=== PATIENT | female | born 1985 | race Caucasian/White ===

== ENCOUNTER 2016-04-13 | Emergency (ER) | payer OTHER ==
[~2016-04-13] MED LIST: Z.0.NO CURRENT MEDS
--- NOTE | 2016-04-13 00:10 | PD ---
HPI Chief Complaint: psychiatric evaluation Time Seen by Provider: 00:10 Travel History International Travel<30 days: No Contact w/Intl Traveler<30days: No History of Present Illness HPI Patient comes in under Webb act by police for making suicidal statements. Patient denies any suicidal or homicidal ideations at this time. Patient states she is not taking her psychiatric medications and that she was drinking with her mother tomasz. Patient denies any medical complaints or concerns at this time. Denies any chest pain, shortness breath, abdominal pain, nausea, vomiting, or fevers. PFSH Past Medical History ADHD: Yes Bipolar Disorder: Yes Anxiety: Yes Depression: Yes Diminished Hearing: No Psychiatric: Yes Immunizations Current: Yes Menopausal: No : 4 Para: 4 Past Surgical History Ear Surgery: Yes (TUBES IN EARS CHILD) Social History Alcohol Use: No Tobacco Use: Yes (1PPD) Substance Use: No Allergies-Medications (Allergen,Severity, Reaction): Coded Allergies: Penicillin (Verified Allergy, Severe, RASH AND EDEMA, 04/13/16) Reported Meds & Prescriptions Reported Meds & Active Scripts Active Reported Latuda (Lurasidone) 60 Mg Tab 60 Mg PO DAILY Review of Systems Except as stated in HPI: all other systems reviewed are Neg Physical Exam Narrative GENERAL: Well-developed, overly nourished, in no acute distress, and non-ill appearing. SKIN: Warm and dry. HEAD: Atraumatic. Normocephalic. EYES: Pupils equal and round. EOMI. No scleral icterus. No injection or drainage. ENT: No nasal bleeding or discharge. Mucous membranes pink and moist. NECK: Trachea midline. Supple. No nuclear rigidity. CARDIOVASCULAR: Regular rate and rhythm. No murmur appreciated. RESPIRATORY: No accessory muscle use. No respiratory distress. Scant wheezing throughout. Breath sounds equal bilaterally. MUSCULOSKELETAL: No obvious deformities. No clubbing. No cyanosis. No edema. Full range of motion. NEUROLOGICAL: Awake and alert. No obvious cranial nerve deficits. Motor grossly within normal limits. Normal speech. PSYCHIATRIC: Appropriate mood and affect. Data Data Last Documented VS Vital Signs Date Time Temp Pulse Resp B/P Pulse Ox O2 Delivery O2 Flow Rate FiO2 04/13/16 00:12 98.7 105 16 139/75 96 Orders Complete Blood Count With Diff (04/13/16 00:08) Comprehensive Metabolic Panel (04/13/16 00:08) Ed Urine Pregnancytest Poc (04/13/16 00:08) Psych Screen (04/13/16 00:08) Drug Screen, Random Urine (04/13/16 00:08) Alcohol (Ethanol) (04/13/16 00:08) Salicylates (Aspirin) (04/13/16 00:08) Tylenol (Acetaminophen) (04/13/16 00:08) Labs Laboratory Tests Test 04/13/16 00:05 White Blood Count 10.5 TH/MM3 Red Blood Count 4.36 MIL/MM3 Hemoglobin 13.6 GM/DL Hematocrit 38.8 % Mean Corpuscular Volume 89.0 FL Mean Corpuscular Hemoglobin 31.1 PG Mean Corpuscular Hemoglobin 35.0 % Concent Red Cell Distribution Width 14.4 % Platelet Count 350 TH/MM3 Mean Platelet Volume 8.3 FL Neutrophils (%) (Auto) 58.9 % Lymphocytes (%) (Auto) 34.5 % Monocytes (%) (Auto) 3.3 % Eosinophils (%) (Auto) 2.3 % Basophils (%) (Auto) 1.0 % Neutrophils # (Auto) 6.2 TH/MM3 Lymphocytes # (Auto) 3.6 TH/MM3 Monocytes # (Auto) 0.4 TH/MM3 Eosinophils # (Auto) 0.2 TH/MM3 Basophils # (Auto) 0.1 TH/MM3 CBC Comment DIFF FINAL Differential Comment Sodium Level 144 MEQ/L Potassium Level 3.6 MEQ/L Chloride Level 111 MEQ/L Carbon Dioxide Level 21.3 MEQ/L Anion Gap 12 MEQ/L Blood Urea Nitrogen 8 MG/DL Creatinine 0.84 MG/DL Estimat Glomerular Filtration 80 ML/MIN Rate Random Glucose 97 MG/DL Calcium Level 8.8 MG/DL Total Bilirubin 0.2 MG/DL Aspartate Amino Transf 18 U/L (AST/SGOT) Alanine Aminotransferase 29 U/L (ALT/SGPT) Alkaline Phosphatase 65 U/L Total Protein 7.9 GM/DL Albumin 3.8 GM/DL Salicylates Level 4.5 MG/DL Urine Opiates Screen NEG Acetaminophen Level LESS THAN 2.0 MCG/ML Urine Barbiturates Screen NEG Urine Amphetamines Screen NEG Urine Benzodiazepines Screen NEG Urine Cocaine Screen POS Urine Cannabinoids Screen NEG Ethyl Alcohol Level 126 MG/DL MDM Medical Decision Making Medical Screen Exam Complete: Yes Emergency Medical Condition: Yes Differential Diagnosis Suicidal, homicidal, alcohol intoxication, drug induced mood disorder, bipolar, other Narrative Course Patient was seen and examined. Labs were obtained and reviewed. Patient medically cleared for further treatment and evaluation by psych. Final disposition per psych. Diagnosis Primary Impression: Alcohol intoxication Qualified Code: F10.120 - Alcohol intoxication, uncomplicated Condition: Stable Camron Jones Apr 13, 2016 00:10
[2016-04-13 00:12] VITALS: BP 139/75; PULSE 105; RESP 16; TEMP 98.7; O2SAT 96
[2016-04-13] MEDS ORDERED: LURA1TAB2 PO (00:14)
[2016-04-13 00:27] LABS: AUTOMATED NEUTROPHIL # 6.2 TH/MM3 (1.8-7.7); BASOPHIL # 0.1 TH/MM3 (0-0.2); EOSINOPHIL # 0.2 TH/MM3 (0-0.4); EOSINOPHIL % 2.3 % (0.0-4.0); HEMATOCRIT 38.8 % (35.0-46.0); HEMO FLAGS DIFF FINAL; LYMPH % 34.5 % (9.0-44.0); LYMPHOCYTE # 3.6 TH/MM3 (1.0-4.8); MEAN CORPUSCULAR HEMOGLOBIN 31.1 PG (27.0-34.0); MONO % 3.3 % (0.0-8.0); NEUT % 58.9 % (16.0-70.0); PLATELET COUNT 350 TH/MM3 (150-450); RED BLOOD COUNT 4.36 MIL/MM3 (4.00-5.30); RED CELL DISTRIBUTION WIDTH 14.4 % (11.6-17.2); WHITE BLOOD COUNT 10.5 TH/MM3 (4.0-11.0)
[2016-04-13 00:38] LABS: AMPHETAMINE, URINE NEG (NEG); BARBITURATES, URINE NEG (NEG); COCAINE, URINE POS (NEG)
[2016-04-13 00:55] LABS: ALKALINE PHOSPHATASE 65 U/L (45-117); ALT (GPT) 29 U/L (10-53); ANION GAP 12 MEQ/L (5-15); AST (GOT) 18 U/L (15-37); BICARBONATE 21.3 MEQ/L (21.0-32.0); BLOOD UREA NITROGEN 8 MG/DL (7-18); CHLORIDE 111 MEQ/L (98-107); GLOMERULAR FILTRATION RATE 80 ML/MIN (>89); POTASSIUM 3.6 MEQ/L (3.5-5.1); SODIUM (NA) 144 MEQ/L (136-145); TOTAL BILIRUBIN ADULT 0.2 MG/DL (0.2-1.0)
[2016-04-13 01:03] LABS: ACETAMINOPHEN LESS THAN 2.0 MCG/ML (10.0-30.0)
[2016-04-13 02:25] VITALS: BP_SYST 122; BP_DIAS 56; BP_DIAS 78; PULSE 79; RESP 18; O2SAT 94
[2016-04-13 06:05] VITALS: BP 119/63; PULSE 78; RESP 18; O2SAT 95
[2016-04-13 10:05] VITALS: BP 151/79; PULSE 84; RESP 18
--- NOTE | 2016-04-13 17:18 | PD ---
History of Present Illness Chief Complaint: Psychiatric Symptoms Time Seen by Provider: 14:00 Travel History International Travel<30 Days: No Contact w/Intl Traveler<30days: No Known affected area: No Legal Status Legal Status: Webb Act Webb Act Signed By: Ze Wei History of Present Illness: History of Present Illness Patient is a 30 year old female who comes in under Webb act initiated by police. The report reads as follows;" Patient stated she didn't want to live anymore and would walk to the railroad tracks and step in front of a train". EMR is reviewed. Case is discussed with nursing staff and patient is seen. As per EMR the patient was last seen and evaluated by psychiatry in 2010 when she was BA for suicidal ideation. Patient with positive toxicology for cocaine and a BAL of 126. She was monitored in J pod until she was clinically sober and able to engage in clinical interview. Patient at this time is alert, oriented, engaging and cooperative. She appears stated age and is dressed in hospital attire. She is maintaining basic hygiene. She is clinically sober. Speech is clear and logical. There is no indication that she is responding to internal stimuli. She denies feeling depressed. She denies any suicidal or homicidal ideation at this time. She relates that she had been drinking and her mother asked her to drive her to a bar. Upon return to the house they were involved in an argument and the mother locked her out of the house. At this time she threatened to hurt herself and the police were called. She minimizes her use of ETOH or other substances and reports she only drinks every couple of months. PFSH Past Medical History ADHD: Yes Bipolar Disorder: Yes Anxiety: Yes Depression: Yes Diminished Hearing: No Psychiatric: Yes Immunizations Current: Yes ?: Not Menopausal: No : 4 Para: 4 Past Surgical History Ear Surgery: Yes (TUBES IN EARS CHILD) Psychiatric History Psychiatric History Hx Psychiatric Treatment: HX OF BIPOLAR D/O, DEPRESSION AND ANXIETY. Currently not on meidciation History of Inpatient Treatment: Yes Social History Hx Alcohol Use: Yes Hx Tobacco Use: Yes Hx Substance Use: Yes Substance Use Type: Alcohol, Nicotine/Cigarettes, Cocaine Other Substances Used: DRANK ALCOHOL TONIGHT Hx of Substance Use Treatment: No Family Psychiatric History Reports that mother uses substances Allergies-Medications (Allergen,Severity, Reaction): Coded Allergies: Penicillin (Verified Allergy, Severe, RASH AND EDEMA, 04/13/16) Reported Meds & Prescriptions Reported Meds & Active Scripts Active Reported Latuda (Lurasidone) 60 Mg Tab 60 Mg PO DAILY Review of Systems Except as stated in HPI: all other systems reviewed are Neg Exam Alert: Yes What Cheer: Person (ox4) Mood: Calm Affect: Euthymic Speech: Clear, Logical Eye Contact: Normal Memory Intact: Comment (no impairment) Hallucinations: Other (denies any) Delusions: No Suicidal: Ideation (denies any) Homicidal: Ideation (denies) Insight/Judgement fair. not impaired MDM Medical Decision Making Medical Record Reviewed: Yes Assessment/Plan 30 year old female with history of bipolar disorder that in context of substance intoxication including alcohol and cocaine, was involved in an argument with her mother and she stated she was thinking of harming herself. She is currently clinically sober and denies any intention of harming herself. She is requesting discharge and does not meet criteria for BA. Will lift BA. Discharge to self. Encouraged to follow up with [facility]. rgument with her mother and she alledgedly threatened to walk in front of a train. Patient at this time and being clinically sober denies any suicidal ideation. She does not present any acute psychiatric symptomatology and Orders Complete Blood Count With Diff (04/13/16 00:08) Comprehensive Metabolic Panel (04/13/16 00:08) Ed Urine Pregnancytest Poc (04/13/16 00:08) Psych Screen (04/13/16 00:08) Drug Screen, Random Urine (04/13/16 00:08) Alcohol (Ethanol) (04/13/16 00:08) Salicylates (Aspirin) (04/13/16 00:08) Tylenol (Acetaminophen) (04/13/16 00:08) Diet Regular Basic (04/13/16 Breakfast) Diet Regular Basic (04/13/16 Lunch) Results Vital Signs Date Time Temp Pulse Resp B/P Pulse Ox O2 Delivery O2 Flow Rate FiO2 04/13/16 10:05 84 18 151/79 Room Air 04/13/16 10:00 78 18 04/13/16 06:05 78 18 119/63 95 Room Air 04/13/16 02:25 79 18 122/56 94 Room Air 04/13/16 00:12 98.7 105 16 139/75 96 Laboratory Tests Test 04/13/16 00:05 White Blood Count 10.5 Red Blood Count 4.36 Hemoglobin 13.6 Hematocrit 38.8 Mean Corpuscular Volume 89.0 Mean Corpuscular Hemoglobin 31.1 Mean Corpuscular Hemoglobin 35.0 Concent Red Cell Distribution Width 14.4 Platelet Count 350 Mean Platelet Volume 8.3 Neutrophils (%) (Auto) 58.9 Lymphocytes (%) (Auto) 34.5 Monocytes (%) (Auto) 3.3 Eosinophils (%) (Auto) 2.3 Basophils (%) (Auto) 1.0 Neutrophils # (Auto) 6.2 Lymphocytes # (Auto) 3.6 Monocytes # (Auto) 0.4 Eosinophils # (Auto) 0.2 Basophils # (Auto) 0.1 CBC Comment DIFF FINAL Differential Comment Sodium Level 144 Potassium Level 3.6 Chloride Level 111 Carbon Dioxide Level 21.3 Anion Gap 12 Blood Urea Nitrogen 8 Creatinine 0.84 Estimat Glomerular Filtration 80 Rate Random Glucose 97 Calcium Level 8.8 Total Bilirubin 0.2 Aspartate Amino Transf 18 (AST/SGOT) Alanine Aminotransferase 29 (ALT/SGPT) Alkaline Phosphatase 65 Total Protein 7.9 Albumin 3.8 Salicylates Level 4.5 Urine Opiates Screen NEG Acetaminophen Level LESS THAN 2.0 Urine Barbiturates Screen NEG Urine Amphetamines Screen NEG Urine Benzodiazepines Screen NEG Urine Cocaine Screen POS Urine Cannabinoids Screen NEG Ethyl Alcohol Level 126 Diagnosis Primary Impression: Alcohol intoxication Additional Impressions: cocaine abuse bipolar disorder Psychiatrically Cleared: Yes Departure Forms: Tests/Procedures Patient Instructions: General Instructions, Stress (ED) Med/ Other Pt Specific Info: No Meds Exist/No RX given Disposition: 01 DISCHARGE HOME Condition: Stable Problem Qualifiers Primary Impression: Alcohol intoxication Qualified Code: F10.120 - Alcohol intoxication, uncomplicated OlsonPaula Allyson Stevensnemesio DAVIS Apr 13, 2016 17:18
== END 2016-04-13 14:55 | disposition home or self-care (01) ==
LOC: NEPA → NEPJ 14:55
DX: F10.120 Alcohol abuse with intoxication, uncomplicated (principal); F17.210 Nicotine dependence, cigarettes, uncomplicated
CPT/HCPCS: 80053; 80307; 80320; 80329; 84703; 85025; 99285; G0480